=== PATIENT | female | born 1985 | race Two or more races ===

== ENCOUNTER → 2022-11-05 13:51 | Outpatient (BNVA) | payer OTHER, SELFPAY | PROVIDERS: Visit Provider Physician Assistant Surgical | DX: E66.9 Obesity, unspecified (principal); Z68.30 Body mass index [BMI] 30.0-30.9, adult; L98.7 Excessive and redundant skin and subcutaneous tissue; Z98.84 Bariatric surgery status | CPT/HCPCS: 99202 ==

== ENCOUNTER 2022-11-05 13:53 | Outpatient (AMB) | payer OTHER, SELFPAY ==
--- NOTE | 2022-11-05 14:00 | MHC.OFFVISWM ---
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 Hx of LSG at [facility] in Apr 2012. Highest weight was 300 pounds, 280 at the time of operation and lowest was 162 pounds States she has been 185-190 pounds over the last 3 years. C/O recurrent rash to under breasts and pannus Reports odor, pain, itching. She was Rx cream with resolution of the rash last year when she was living in [place] Reports multiple self treatments with deoderant, powders, and home remidies with variing degrees of success although she states rash always recurrs. She has not followed up with [facility] bariatrics Meal plan 3 meals and 3 snacks daily drinking 64 oz water daily No juice or soda No etoh, cannabis, tobacco Exercise plan [employer] treadmill 1 hr 5 x per week for 200-300 caloires. [facility] Surgical History Hx of section Hx of gastric bypass Hx of hysterectomy Review of Systems Const All systems reviewed & are unremarkable except as noted in HPI and below Physical Exam Const General: cooperative, healthy appearing and no acute distress Orientation/consciousness: patient oriented x3 HEENT Head: Yes normal to inspection Ears: hearing grossly normal bilaterally General nose exam: Normal external nose present Face and sinus: Yes normal facial exam Eyes General: appearance normal, both eyes and all related structures Resp Effort & Inspection: normal respiratory effort Cardio Rate: regular rate Rhythm: regular rhythm GI Inspection: Yes normal to inspection, No distended, Yes incision (healed lap incisional scars) and Yes obesity Skin Other: grade 1 pannus without active dermatitis General skin exam: no rashes or lesions noted Neuro General: patient oriented x3 Extrem General: No edema Psych Appearance: grossly normal Mental Status: mental status grossly normal Speech and movement: Normal speech and movement present Affect: normal affect Attitude: cooperative Assessment & Plan Assessment & Plan (1) Obesity (BMI 30-39.9): Code(s): E66.9 - Obesity, unspecified Plan: This is a?36 yo female who presents for possible panniculectomy. She will need to achieve weight loss prior to surgery and is in neeed of a meal plana and exercise plan. She states she hd labs done 2 months ago at [facility] and she will provide this by our next appointment. Will check any vitamin levels not checked. ? Adequate sleep of 7-8 hours per night discussed, awakening at 7 am and going to bed at 10 pm ? Purchase body composition analyzer scale (Axel irby or Jose recommended) and check weight weekly. The best time to do this is first thing in the morning after going to the bathroom. 1. Nutritional counseling: Be sure to careful read the number of scoops per shake Start with 3 Premier Protein shakes ([employer], [employer], [facility]), (1 scoop in 8 oz low fat unsweetened almond milk or water each) First shake at 8am-10am, Second shake at 12pm-2pm 1/2 c montenegrin yogurt with 1/2 cup fresh berries at 3pm-4-pm Dinner at 6pm (7 forks of protein and 7 forks of salad/vegetables). Meal to include lean meat (beef, fish, pork, turkey, chicken), cooked vegetables or a salad with olive oil and/or fruits (berries, pears, apples, kiwi). Avoid salt, breads, potatoes, rice, pasta, desserts. Another shake with 1 scoop in 8 oz unsweetened almond milk at 8pm-10pm. Try to drink 64 oz of water daily and avoid soda and juices. ?2. Each shake would be drunk slowly, like coffee in a period of 2 hours. ?3. Cut each bar in 4 pieces and eat each piece in 30 min ?to make each bar last 2 hours. ?4. I emphasized the importance of measuring accurately the food portion and measure it carefully when serving the food on the plate ?5. The meal portions include 7 full-size forks of meat and 7 full-size forks of salad. You always eat the meat portion but you can replace up to half of the forks of salad/vegetables with rice, potatoes or pasta, or a fruit ?if you like. The less you do it the better weight loss will be. ?6. One full-size fork is what can be scooped on the fork without falling aside and not what can be bit with the fork. Use regular forks like those you find in a typical restaurant. ?7.? Please send me weight measurements as soon as possible and then once a week. Always include your diet and exercise plan. Alternatively come weekly at the office for weight checks and send me the measurements. ?8. Exercise counseling: Begin by watching a stretching for beginners video. Start slowly and begin to stretch your muscles. You should do this before and after each exercise session to prevent injury. Please continue going to [employer] gym near your home. Start elliptical with a resistance of 2. Increase resistance by 1 every 3 min to your most comfortable resistance with a max resistance of 8. Reduce the resistance by 1 every 3 minutes back down to 2 and repeat cycles for 300 calories. Alternatively, start treadmill with a speed of 3.0 and incline of 0, increasing incline by 1 every 3 minutes to the highest comfortable level (max 8 for now) then decrease in the same fashion. Repeat process to a goal of 300 calories. Goal of 2000 calories burned or more weekly. You may also consider use of the stationary bike. The easiest would be to chose the fat-burn or interval training program on the machine and do this until you reach the 300 calorie goal. Alternatively, you can manually adjust the resistance in a similar fashion as mentioned above, (resistance of 2-8 with a goal speed of 12 mph). Tracking calories is essential. 9. Alternatively start walking outside daily, tracking calories with a goal of 300 calories per day, daily. You can download the f[employer]die [employer] which can track your time, distance and calories while walking outside. You press start in the freddie when you start and then stop when you are finished. 10.? It is important to text me with any concerns or questions 11. Please follow the diet plan exactly, without any change. If you do not like something about the plan or you feel hungry, you need to communicate with me so I can help you revise the plan. You should not change the plan yourself. Text me at [phone] 12. Goal is to lose at least 8 pounds in the first month 13. Please get operation report from [facility] from April 2012 as well as a copy of your most recent labs. Patient is morbidly obese and is not considered stable at this time.?I spent a total of 70 minutes reviewing/updating records, examining the patient and counseling the patient on weight management as detailed above. (2) Excess skin: Code(s): L98.7 - Excessive and redundant skin and subcutaneous tissue Coding Level of Care Code New Pt Level 5 (72867) Diagnoses Obesity (BMI 30-39.9) E66.9 Excess skin L98.7 Time Spent (min) 70
[2022-11-05 14:14] VITALS: BP 116/68; PULSE 76; TEMP 36.1; O2SAT 97; BMI 30.9
== END 2022-11-05 14:37 | disposition home or self-care (01) ==
PROVIDERS: Visit Provider Physician Assistant Surgical
DX: L98.7 Excessive and redundant skin and subcutaneous tissue (principal); E66.9 Obesity, unspecified; Z68.30 Body mass index [BMI] 30.0-30.9, adult
CPT/HCPCS: 99205